=== PATIENT | female | born 1945 | race Caucasian/White ===

== ENCOUNTER 2020-12-19 10:25 | Day surgery (SDC) | payer MEDICARE ==
[~2020-12-19] VITALS: Ht 157.5 cm; Wt 102.3 kg
[~2020-12-19 10:25] MED LIST: BACL10TA PO; GABA-1181 PO; HEPARIN SODIUM 1000 UNITS/NS 1,000 ML ONE; IOHEXOL 300 MG/ML 100 ML VIAL ONE; IOHEXOL 300 MG/ML 150 ML VIAL ONE; IOHEXOL 300 MG/ML 50 ML VIAL ONE; LIDOCAINE/PF 1% 30 ML VIAL ONE; SODIUM BICARBONATE 50 MEQ/50 ML VIAL ONE; SODIUM CHLORIDE 0.9% 1,000 ML ONE
[2020-12-19] MEDS ORDERED: NITR0.4T52 SL (10:58)
[2020-12-19] MEDS ORDERED: LOVA40TA2 PO (10:58)
[2020-12-19] MEDS ORDERED: METO50 PO (10:58)
[2020-12-19] MEDS ORDERED: LISI-658 PO (10:58)
[2020-12-19] MEDS ORDERED: LIDOCAINE/PF 1% 30 ML VIAL ONE ×2 (11:28→12:32)
[2020-12-19] MEDS ORDERED: SODIUM BICARBONATE 50 MEQ/50 ML VIAL ONE ×2 (11:28→12:32)
[2020-12-19 11:51] LABS: GLUCOMETER DEV NAME(LOC) SDS.; GLUCOSE,POINT OF CARE 91 MG/DL (70-110)
[2020-12-19] MEDS ORDERED: SODIUM CHLORIDE 0.9% 1,000 ML IV ONE (12:00)
[2020-12-19] MEDS ORDERED: IOHEXOL 300 MG/ML 100 ML VIAL ONE (12:32)
[2020-12-19] MEDS ORDERED: IOHEXOL 300 MG/ML 150 ML VIAL ONE (12:32)
[2020-12-19 13:06] VITALS: BP 122/55
[2020-12-19] MEDS ORDERED: FentaNYL CITRATE PF 100 MCG/2 ML VIAL ONE (13:11)
[2020-12-19] MEDS ORDERED: MIDAZOLAM HCL 2 MG/2 ML VIAL ONE (13:11)
[2020-12-19] MEDS ORDERED: MIDAZOLAM HCL 2 MG/2 ML VIAL IVP ONE (13:15)
[2020-12-19] MEDS ORDERED: HEPARIN SODIUM 1000 UNITS/NS 1,000 ML IARTER ONE (13:15)
[2020-12-19] MEDS ORDERED: LIDOCAINE 1% 30 ML/SOD BICARB 8.4% 4 ML SQ ONE (13:15)
[2020-12-19] MEDS ORDERED: IOHEXOL 300 MG/ML 150 ML VIAL IARTER ONE (13:15)
[2020-12-19] MEDS ORDERED: FentaNYL CITRATE PF 100 MCG/2 ML VIAL IVP ONE (13:15)
[2020-12-19 13:36] VITALS: BP 107/44
== END 2020-12-19 16:35 | disposition home or self-care (01) ==
LOC: CATHLAB 10:25
PROVIDERS: ATTEND Internal Medicine Interventional Cardiology
DX: R94.39 Abnormal result of other cardiovascular function study (principal); I10 Essential (primary) hypertension; Z90.49 Acquired absence of other specified parts of digestive tract; Z98.890 Other specified postprocedural states; Z90.710 Acquired absence of both cervix and uterus; Z96.651 Presence of right artificial knee joint; Z98.42 Cataract extraction status, left eye; F17.210 Nicotine dependence, cigarettes, uncomplicated; K21.9 Gastro-esophageal reflux disease without esophagitis; E78.00 Pure hypercholesterolemia, unspecified
CPT/HCPCS: 82962; 93005; 93458; 99152; C1760; J1644; J2250; J3010; J3490 ×2; J7030; Q9967 ×3